=== PATIENT | female | born 1940 | race Caucasian/White ===

== ENCOUNTER 2021-04-15 07:39 | Outpatient (REF) | payer MEDICARE, SELFPAY | END 2021-04-15 07:40 | disposition home or self-care (01) | LOC: HO.HOSX 07:39 | PROVIDERS: Visit Provider Physician Assistant | DX: M75.41 Impingement syndrome of right shoulder (principal); M25.511 Pain in right shoulder | CPT/HCPCS: 20610; 99202; J1040 ==

== ENCOUNTER 2021-06-10 10:17 | Outpatient (REF) | payer SELFPAY | END 2021-06-10 10:18 | disposition home or self-care (01) | LOC: HO.HAP 10:17 | PROVIDERS: Visit Provider Family Medicine | DX: Z13.89 Encounter for screening for other disorder (principal) ==

== ENCOUNTER 2022-08-31 08:35 | Outpatient (REF) | payer SELFPAY | END 2022-08-31 08:36 | disposition home or self-care (01) | LOC: HO.HAP 08:35 | PROVIDERS: Visit Provider Family Medicine | DX: Z13.89 Encounter for screening for other disorder (principal) ==

== ENCOUNTER 2022-09-01 08:39 | Outpatient (REF) | payer SELFPAY | END 2022-09-01 08:40 | disposition home or self-care (01) | LOC: HO.HAP 08:39 | PROVIDERS: Visit Provider Family Medicine | DX: Z13.89 Encounter for screening for other disorder (principal) ==

== ENCOUNTER 2023-04-09 14:47 | Outpatient (REF) | payer SELFPAY ==
--- NOTE | 2023-04-09 15:33 | MHC.AU.HA3 ---
Hearing Instrument Follow-Up- Binaural Date of Visit: 04/09/23 Right Ear: Javid, Model, Color, Serial Number: Neil Burgos [id number]-[id number] SN: [id number] Color: Sand Beige Primer And Powder Canning Leader Repair Warranty: 02/02/2023 Primer And Powder Canning Leader Loss and Damage Warranty: 02/02/2023 Battery Size: Rechargeable Assistant Professor Of Theater/Slim Tube: 2M Earmold/Dome/CShell/SlimTip:Medium vented dome with retention tail Type of Wax Guard: CeruShield Dispensed By: [facility] Date of Fittin11/24/2019 Left Ear: Javid, Model, Color, Serial Number: Neil Burgos [id number]-[id number] SN: [id number] Color: Sand Beige Primer And Powder Canning Leader Repair Warranty: 02/02/2023 Primer And Powder Canning Leader Loss and Damage Warranty: 02/02/2023 Battery Size: Rechargeable Assistant Professor Of Theater/Slim Tube: 2M Earmold/Dome/CShell/SlimTip: Medium vented dome with retention tail Type of Wax Guard: CeruShield Dispensed By: [facility] Date of Fittin11/24/2019 Follow-Up Summary: Debra reported that her left hearing aid is and will not charge. Confirmed in office - Hearing aid would not turn on and no LED light illuminating while in playground official. Rebooted hearing aid by pressing bottom of multifunction button for 15 seconds then placing it in playground official for 30 seconds. Hearing aid turned on and started charging properly. Cleaned both hearing aids. Replaced domes, wax guards, and retention tails. A listening check demonstrated the hearing aids are amplifying clearly. Connected to [employer] software. No firmware update available. Confirmed battery levels were good. Recommendations: Hearing instrument follow-up or maintenance as needed. Please contact our clinic with any questions or concerns. Diagnosis Code(s): Primary Diagnosis: H90.3 Bilateral Sensorineural Hearing Loss Signature: Provider: Bethel Hart, [facility]
== END 2023-04-09 14:48 | disposition home or self-care (01) ==
LOC: HO.HAP 14:47
PROVIDERS: Visit Provider Family Medicine
DX: Z46.1 Encounter for fitting and adjustment of hearing aid (principal); H90.3 Sensorineural hearing loss, bilateral
CPT/HCPCS: 92593

== ENCOUNTER 2023-05-30 10:35 | Outpatient (REF) | payer SELFPAY | END 2023-05-30 10:36 | disposition home or self-care (01) | LOC: HO.HAP 10:35 | PROVIDERS: Visit Provider Family Medicine | DX: Z46.1 Encounter for fitting and adjustment of hearing aid (principal); H90.3 Sensorineural hearing loss, bilateral | CPT/HCPCS: 92592 ==

== ENCOUNTER 2023-09-17 08:57 | Outpatient (AMB) | payer BC, SELFPAY ==
--- NOTE | 2023-09-17 09:47 | AM.OFFWIN_ITS ---
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 Rash on right neck and anterior right chest. She reports pain to the posterior occiput but overall the rash itself is not painful, itching or burning. Denies fevers, chills, syncope, weakness, dizziness, chest pain, nausea, vomiting, diarrhea, vision changes PFSH Surgical History (Updated 04/15/21 @ 09:19 by Yohan Tidwell) History of tonsillectomy Social History (Updated 04/15/21 @ 09:20 by Yohan Tidwell) Patient Tobacco Use Status: Never used Tobacco Current occupational status: retired Current occupation: rt handed Review of Systems Const All systems reviewed & are unremarkable except as noted in HPI and below Physical Exam Vital Signs: Last Vital Signs Temp 97.2 F 09/17/23 10:02 Pulse 76 09/17/23 10:02 BP 120/70 09/17/23 10:02 Pulse Ox 98 09/17/23 10:02 Oxygen Delivery Method Room Air 09/17/23 10:02 BMI result Body Mass Index 25.8 General: awake, alert, oriented. Answers questions appropriately. Fully engaged in examination. Skin: Erythematous, vesicular rash noted right upper cervical, right side of neck and right anterior chest. No weeping, discharge, purulent drainage. MS: No obvious swelling or deformities. Psychiatric: Appropriate mood and affect. Good judgment and insight. Assessment & Plan Assessment & Plan (1) Shingles: Code(s): B02.9 - Zoster without complications Plan Valacyclovir a 1000 mg p.o. t.i.d. x7 days Celecoxib 50 mg p.o. b.i.d. as needed for pain. Patient advised on cautions for use. Do not take with any other nonsteroidal anti-inflammatory medications. Avoid contact with small children or women. Follow up with PCP or return to walk-in for any new or worsening symptoms Patient advised on red flag symptoms and when to seek treatment in the emergency room Medications: New valacyclovir 1,000 mg PO TID 7 days 21 tabs 0RF celecoxib 50 mg PO BID PRN 14 caps 0RF pain Coding Level of Care Code New Pt Level 3 (24439) Diagnoses Shingles B02.9
[2023-09-17 10:02] VITALS: BP 120/70; PULSE 76; TEMP 36.2; O2SAT 98; BMI 25.8
== END 2023-09-17 10:43 | disposition home or self-care (01) ==
PROVIDERS: PCP Family Medicine; Visit Provider Registered Nurse Emergency
DX: B02.9 Zoster without complications (principal)
CPT/HCPCS: 99203